=== PATIENT | male | born 1960 ===

== ENCOUNTER 2017-10-28 07:10 | Inpatient (IN) ==
[2017-10-29 16:00] VITALS: BP 130/86
== END 2017-10-29 17:45 | disposition home or self-care (01) | DRG 287 ==
LOC: N.ED 07:10 → N.EDINP 10:36 → N.TELES 12:48
PROVIDERS: ADMIT Internal Medicine; ATTEND Internal Medicine
PROC: CLCCHCL (ICD-10-PCS; 2017-10-29 09:15)